=== PATIENT | male | born 1970 | race African-American/Black ===

== ENCOUNTER 2016-05-26 13:26 | Emergency (ER) | payer OTHER ==
[2016-05-26 14:32] LABS: Hematocrit 43 % (42-52); Hemoglobin 14.1 g/dl (14.0-18.0); Mean Corpuscular HGB Conc 33 g/dl (31-36); Mean Corpuscular Hemoglobin 27 pg (27-31); Mean Corpuscular Volume 83 fL (80-94); Mean Platelet Volume 8 um3 (7.4-10.4); Red Blood Count 5.18 10^6/ul (4.0-5.4); Red Cell Distribution Width 15 % (10.5-15); White Blood Count 6.3 10^3/ul (3.5-10.8)
[2016-05-26 14:34] LABS: Urine Bilirubin Negative (Negative); Urine Glucose Negative (Negative); Urine Nitrite Negative (Negative)
[2016-05-26 14:47] LABS: ALT 23 U/L (7-52); AST 18 U/L (13-39); Albumin 4.2 g/dL (3.2-5.2); Alkaline Phosphatase 52 U/L (34-104); Anion Gap 6 mmol/L (2-11); BUN/Creatinine Ratio 10.8 (8-20); Blood Urea Nitrogen 12 mg/dL (6-24); CO2 Carbon Dioxide 28 mmol/L (22-32); Calcium 9.3 mg/dL (8.6-10.3); Chloride 101 mmol/L (101-111); EGFR African American 91.7 (>60); EGFR Non-African American 71.3 (>60); Globulin 2.9 g/dL (2-4); Glucose 182 mg/dL (70-100); Potassium 3.8 mmol/L (3.5-5.0); Sodium 135 mmol/L (133-145); Total Protein 7.1 g/dL (6.4-8.9)
[2016-05-26 15:07] LABS: Benzodiazepine Urine Screen None Detected (None Detect)
[2016-05-26 15:38] LABS: Acetaminophen < 15 mcg/mL; Alcohol < 10 mg/dL (<10); Salicylate < 2.50 mg/dL (<30)
[2016-05-26 15:44] LABS: TSH (Thyroid Stimulating Horm) 1.21 mcIU/mL (0.34-5.60)
--- NOTE | 2016-05-26 19:56 | ED ---
Tyler Padilla Erika, scribed for Mir Messina MD on 05/26/16 at 1358 . Psychiatric Complaint - HPI Summary HPI Summary: Patient is a 46-year-old male presenting to the ED with a CC of depression. Patient reports a Hx of depression, for which he is non-compliant with his medication. He denies known bipolar disorder or other diagnoses. Patient states he has been feeling more depressed recently, and was sent here today by his mental health counselor. He denies SI/HI. Patient denies any drug or alcohol use today. - History Of Current Complaint Chief Complaint: EDMentalHealth Time Seen by Provider: 05/26/16 13:36 Accompanied By: Alone Hx Obtained From: Patient Onset/Duration: Gradual Onset, Lasting Days, Still Present Timing: Constant Severity Initially: Moderate Character: Depressed Alleviating Factor(s): Nothing Related History: Positive For: Prior Psychiatric Issues Has Suicidal: Denies: Thoughts Has Homicidal: Denies: Thoughts - Allergies/Home Medications Allergies/Adverse Reactions: Allergies Allergy/AdvReac Type Severity Reaction Status Date / Time No Known Allergies Allergy Verified 09/26/14 20:38 Home Medications: Home Medications BuPROPion XL* [Bupropion XL*] 300 mg PO QAM 05/26/16 [History Confirmed 05/26/16 ] Losartan TAB* [Cozaar TAB*] 50 mg PO DAILY 05/26/16 [History Confirmed 05/26/16] Sertraline* [Zoloft*] 150 mg PO DAILY 05/26/16 [History Confirmed 05/26/16] glipiZIDE TAB* [Glucotrol TAB*] 5 mg PO BID 05/26/16 [History Confirmed 05/26/16 ] metFORMIN* [Glucophage 1000 MG TAB *] 1,000 mg PO BID 05/26/16 [History Confirmed 05/26/16] PMH/Surg Hx/FS Hx/Imm Hx Endocrine/Hematology History: Reports: Hx Diabetes - II Neurological History: Reports: Other Neuro Impairments/Disorders - sleep apnea Psychiatric History: Reports: Hx Depression Infectious Disease History: No Infectious Disease History: Denies: Traveled Outside the [place] in Last 30 Days - Family History Known Family History: Positive: Diabetes - Mother - Social History Alcohol Use: Occasionally Substance Use Type: Reports: None Hx Tobacco Use: Yes Smoking Status (MU): Heavy Every Day Tobacco Smoker Review of Systems Negative: Fever Positive: Depressed All Other Systems Reviewed And Are Negative: Yes Physical Exam Triage Information Reviewed: Yes Vital Signs On Initial Exam: Initial Vitals Temp Pulse Resp BP Pulse Ox 98.4 F 82 12 145/100 100 05/26/16 13:28 05/26/16 13:28 05/26/16 13:28 05/26/16 13:28 05/26/16 13:28 Vital Signs Reviewed: Yes Appearance: Positive: Well-Appearing, No Pain Distress Skin: Positive: Warm, Skin Color Reflects Adequate Perfusion, Dry Head/Face: Positive: Normal Head/Face Inspection Eyes: Positive: EOMI, RODGER ENT: Positive: Normal ENT inspection Neck: Positive: Supple, Nontender Respiratory/Lung Sounds: Positive: Clear to Auscultation, Breath Sounds Present Cardiovascular: Positive: RRR Abdomen Description: Positive: Nontender, Soft Bowel Sounds: Positive: Present Musculoskeletal: Positive: Normal, Strength/ROM Intact Neurological: Positive: Normal, Sensory/Motor Intact, Alert, Oriented to Person Place, Time Psychiatric: Positive: Depressed Diagnostics - Vital Signs Vital Signs Temp Pulse Resp BP Pulse Ox 05/26/16 13:28 98.4 F 82 12 145/100 100 - Laboratory Lab Results: Lab Results 05/26/16 05/26/16 05/26/16 Range/Units 14:19 14:19 14:19 WBC 6.3 (3.5-10.8) 10^3/ul RBC 5.18 (4.0-5.4) 10^6/ul Hgb 14.1 (14.0-18.0) g/dl Hct 43 (42-52) % MCV 83 (80-94) fL MCH 27 (27-31) pg MCHC 33 (31-36) g/dl RDW 15 (10.5-15) % Plt Count 177 (150-450) 10^3/ul MPV 8 (7.4-10.4) um3 Neut % (Auto) 67.7 (38-83) % Lymph % (Auto) 25.0 (25-47) % [place] % (Auto) 6.0 (1-9) % Eos % (Auto) 0.4 (0-6) % Baso % (Auto) 0.9 (0-2) % Absolute Neuts (auto) 4.3 (1.5-7.7) 10^3/ul Absolute Lymphs (auto) 1.6 (1.0-4.8) 10^3/ul Absolute Monos (auto) 0.4 (0-0.8) 10^3/ul Absolute Eos (auto) 0 (0-0.6) 10^3/ul Absolute Basos (auto) 0.1 (0-0.2) 10^3/ul Absolute Nucleated RBC 0 10^3/ul Nucleated RBC % 0 Sodium 135 (133-145) mmol/L Potassium 3.8 (3.5-5.0) mmol/L Chloride 101 (101-111) mmol/L Carbon Dioxide 28 (22-32) mmol/L Anion Gap 6 (2-11) mmol/L BUN 12 (6-24) mg/dL Creatinine 1.11 (0.67-1.17) mg/dL Est GFR ( Amer) 91.7 (>60) Est GFR (Non-Af Amer) 71.3 (>60) BUN/Creatinine Ratio 10.8 (8-20) Glucose 182 H (70-100) mg/dL Calcium 9.3 (8.6-10.3) mg/dL Total Bilirubin 0.70 (0.2-1.0) mg/dL AST 18 (13-39) U/L ALT 23 (7-52) U/L Alkaline Phosphatase 52 (34-104) U/L Total Protein 7.1 (6.4-8.9) g/dL Albumin 4.2 (3.2-5.2) g/dL Globulin 2.9 (2-4) g/dL Albumin/Globulin Ratio 1.4 (1-3) TSH 1.21 (0.34-5.60) mcIU/mL Urine Color Yellow Urine Appearance Clear Urine pH 6.0 (5-9) Ur Specific [place] 1.014 (1.010-1.030) Urine Protein Negative (Negative) Urine Ketones Negative (Negative) Urine Blood Negative (Negative) Urine Nitrate Negative (Negative) Urine Bilirubin Negative (Negative) Urine Urobilinogen Negative (Negative) Ur Leukocyte Esterase Negative (Negative) Urine Glucose Negative (Negative) Urine Ascorbic Acid * H (Negative) Salicylates < 2.50 (<30) mg/dL Urine Opiates Screen (None Detect) Acetaminophen < 15 mcg/mL Ur Barbiturates Screen (None Detect) Ur Phencyclidine Scrn (None Detect) Ur Amphetamines Screen (None Detect) U Benzodiazepines Scrn (None Detect) Urine Cocaine Screen (None Detect) U Cannabinoids Screen (None Detect) Serum Alcohol < 10 (<10) mg/dL 05/26/16 Range/Units 14:19 WBC (3.5-10.8) 10^3/ul RBC (4.0-5.4) 10^6/ul Hgb (14.0-18.0) g/dl Hct (42-52) % MCV (80-94) fL MCH (27-31) pg MCHC (31-36) g/dl RDW (10.5-15) % Plt Count (150-450) 10^3/ul MPV (7.4-10.4) um3 Neut % (Auto) (38-83) % Lymph % (Auto) (25-47) % [place] % (Auto) (1-9) % Eos % (Auto) (0-6) % Baso % (Auto) (0-2) % Absolute Neuts (auto) (1.5-7.7) 10^3/ul Absolute Lymphs (auto) (1.0-4.8) 10^3/ul Absolute Monos (auto) (0-0.8) 10^3/ul Absolute Eos (auto) (0-0.6) 10^3/ul Absolute Basos (auto) (0-0.2) 10^3/ul Absolute Nucleated RBC 10^3/ul Nucleated RBC % Sodium (133-145) mmol/L Potassium (3.5-5.0) mmol/L Chloride (101-111) mmol/L Carbon Dioxide (22-32) mmol/L Anion Gap (2-11) mmol/L BUN (6-24) mg/dL Creatinine (0.67-1.17) mg/dL Est GFR ( Amer) (>60) Est GFR (Non-Af Amer) (>60) BUN/Creatinine Ratio (8-20) Glucose (70-100) mg/dL Calcium (8.6-10.3) mg/dL Total Bilirubin (0.2-1.0) mg/dL AST (13-39) U/L ALT (7-52) U/L Alkaline Phosphatase (34-104) U/L Total Protein (6.4-8.9) g/dL Albumin (3.2-5.2) g/dL Globulin (2-4) g/dL Albumin/Globulin Ratio (1-3) TSH (0.34-5.60) mcIU/mL Urine Color Urine Appearance Urine pH (5-9) Ur Specific [place] (1.010-1.030) Urine Protein (Negative) Urine Ketones (Negative) Urine Blood (Negative) Urine Nitrate (Negative) Urine Bilirubin (Negative) Urine Urobilinogen (Negative) Ur Leukocyte Esterase (Negative) Urine Glucose (Negative) Urine Ascorbic Acid (Negative) Salicylates (<30) mg/dL Urine Opiates Screen None detected (None Detect) Acetaminophen mcg/mL Ur Barbiturates Screen None detected (None Detect) Ur Phencyclidine Scrn None detected (None Detect) Ur Amphetamines Screen None detected (None Detect) U Benzodiazepines Scrn None detected (None Detect) Urine Cocaine Screen None detected (None Detect) U Cannabinoids Screen None detected (None Detect) Serum Alcohol (<10) mg/dL Result Diagrams: 05/26/16 14:19 05/26/16 14:19 Lab Statement: Any lab studies that have been ordered have been reviewed, and results considered in the medical decision making process. Course/Dx - Course Course Of Treatment: No critical care time. Patient is medically cleared at 15: 44. Assessment/Plan: MHE PENDING AT SHIFT CHANGE STABLE - Differential Dx/Clinical Impression Provider Diagnosis: Mental health problem Discharge - Discharge Plan Condition: Stable Disposition: PSYCHIATRIC FACILITY-[facility] [place] Referrals: Ton Patten MD [Primary Care Provider] - The documentation as recorded by the Tyler harley Erika accurately reflects the service I personally performed and the decisions made by me, Mir Messina MD.
[2016-05-27] MEDS ORDERED: Losartan TAB* 25 MG PO SCH (09:00)
[2016-05-27] MEDS ORDERED: BuPROPion XL* 300 MG TAB.XL PO SCH (09:00)
[2016-05-27] MEDS ORDERED: glipiZIDE TAB* 5 MG PO SCH (09:00)
[2016-05-27] MEDS ORDERED: Sertraline* 100 MG TAB PO SCH (09:00)
[2016-05-27] MEDS ORDERED: metFORMIN* 1,000 MG TAB PO SCH (09:00)
[2016-05-27 11:24] VITALS: BP 127/76
--- NOTE | 2016-05-27 17:14 | ED ---
Jimbo Padilla Salem, scribed for Raudel Colon MD on 05/27/16 at 1705 . Progress - Progress Note Progress Note: Sign out from Dr. Polk. Transfer paper work signed. Condition stable. - Consult/PCP Time Called: 20:35 Course/Dx - Course Course Of Treatment: No critical care time. Patient is medically cleared at 15: 44. - Diagnoses Provider Diagnoses: Depression, Suicidal ideations, Mood disorder Discharge - Discharge Plan Condition: Stable Disposition: [facility]ATR[facility] FACILITY[place] – [place] Referrals: Ton Patten MD [Primary Care Provider] - The documentation as recorded by the Jimbo harley Salem accurately reflects the service I personally performed and the decisions made by , Raudel Colon MD.
== END 2016-05-27 18:51 ==
LOC: ED 13:26
DX: F32.9 Major depressive disorder, single episode, unspecified (principal); F39 Unspecified mood [affective] disorder; R45.851 Suicidal ideations; F17.210 Nicotine dependence, cigarettes, uncomplicated
CPT/HCPCS: 36415; 80053; 80307; 80320; 80329; 81003; 84443; 85025; 93005; 99282; A9270-GY; G0480

== ENCOUNTER 2018-02-05 22:25 | Emergency (ER) | payer OTHER ==
--- NOTE | 2018-02-05 23:57 | ED ---
GI/ HPI - HPI Summary HPI Summary: This patient is a 47 year old M presenting to [facility] c/o blood in his stool intermittently for the last two weeks. The patient rates the pain 0/10 in severity. Patient reports constipation. He states he felt around his anus and it felt like something was growing from it he is concerned for hemorrhoids. - History of Current Complaint Chief Complaint: EDGIBleed Time Seen by Provider: 02/05/18 23:46 Stated Complaint: BLOOD IN STOOL Hx Obtained From: Patient Onset/Duration: Started Weeks Ago, Still Present Timing: Constant Severity: Mild Pain Intensity: 0 Associated Signs and Symptoms: Positive: Other: - blood in stool - Allergy/Home Medications Allergies/Adverse Reactions: Allergies Allergy/AdvReac Type Severity Reaction Status Date / Time No Known Allergies Allergy Verified 09/26/14 20:38 PMH/Surg Hx/FS Hx/Imm Hx Endocrine/Hematology History: Reports: Hx Diabetes - II Respiratory History: Denies: Hx Chronic Obstructive Pulmonary Disease (COPD) Neurological History: Reports: Other Neuro Impairments/Disorders - sleep apnea Psychiatric History: Reports: Hx Depression Denies: Hx Eating Disorder, Hx of Violent Episodes Against Others Infectious Disease History: No Infectious Disease History: Denies: Traveled Outside the [place] in Last 30 Days - Family History Known Family History: Positive: Diabetes - Mother - Social History Alcohol Use: Occasionally Substance Use Type: Reports: None Hx Tobacco Use: Yes Smoking Status (MU): Heavy Every Day Tobacco Smoker Review of Systems Negative: Fever Gastrointestinal: Other - constipation and felt like something was growing from it Positive: Other - blood in stool All Other Systems Reviewed And Are Negative: Yes Physical Exam - Summary Physical Exam Summary: VITAL SIGNS: Reviewed. GENERAL: Patient is a well-developed and nourished male who is lying comfortable in the stretcher. Patient is not in any acute respiratory distress. HEAD AND FACE: No signs of trauma. No ecchymosis, hematomas or skull depressions. No sinus tenderness. EYES: PERRLA, EOMI x 2, No injected conjunctiva, no nystagmus. EARS: Hearing grossly intact. Ear canals and tympanic membranes are within normal limits. MOUTH: Oropharynx within normal limits. NECK: Supple, trachea is midline, no adenopathy, no JVD, no carotid bruit, no c- spine tenderness, neck with full ROM. CHEST: Symmetric, no tenderness at palpation LUNGS: Clear to auscultation bilaterally. No wheezing or crackles. CVS: Regular rate and rhythm, S1 and S2 present, no murmurs or gallops appreciated. ABDOMEN: Soft, non-tender. No signs of distention. No rebound no guarding, and no masses palpated. Bowel sounds are normal. EXTREMITIES: FROM in all major joints, no edema, no cyanosis or clubbing. NEURO: Alert and oriented x 3. No acute neurological deficits. Speech is normal and follows commands. SKIN: Dry and warm Rectal: no bleeding, external hemorrhoids present Triage Information Reviewed: Yes Vital Signs On Initial Exam: Initial Vitals Temp Pulse Resp BP Pulse Ox 98.8 F 83 20 134/99 98 02/05/18 22:30 02/05/18 22:30 02/05/18 22:30 02/05/18 22:30 02/05/18 22:30 Vital Signs Reviewed: Yes Diagnostics - Vital Signs Vital Signs Temp Pulse Resp BP Pulse Ox 02/05/18 22:30 98.8 F 83 20 134/99 98 - Laboratory Lab Statement: Any lab studies that have been ordered have been reviewed, and results considered in the medical decision making process. GIGU Course/Dx - Course Assessment/Plan: This patient is a 47 year old M presenting to [facility] c/o blood in his stool intermittently for the last two weeks. The patient rates the pain 0 /10 in severity. Patient reports constipation. He states he felt around his anus and it felt like something was growing from it he is concerned for hemorrhoids. External hemorrhoids present on exam. Patient will be discharged and follow up from surgery. The patient is agreeable with this plan. - Diagnoses Provider Diagnoses: External hemorrhoids Discharge - Sign-Out/Discharge Documenting (check all that apply): Patient Departure - Discharge Plan Condition: Stable Disposition: HOME Patient Education Materials: Hemorrhoids (ED), Rectal Bleeding (ED) Referrals: Hebert Gay MD [Medical Doctor] - 2 Days Additional Instructions: Use a stool softener. RETURN TO THE EMERGENCY DEPARTMENT FOR CHANGING OR WORSENING SYMPTOMS - Attestation Statements Document Initiated by Scribe: Yes Documenting Scribe: Matt Null Provider For Whom Scribe is Documenting (Include Credential): Howie Garcia MD Scribe Attestation: Matt Padilla scribed for Howie Garcia MD on 02/06/18 at 0010. Status of Scribe Document: Ready
[2018-02-06] MEDS ORDERED: Hydrocortisone SUPP* 25 MG SUPP (2.5%) PR ONE (00:04)
[2018-02-06 00:31] VITALS: BP 138/92
== END 2018-02-06 00:34 | disposition home or self-care (01) ==
LOC: ED 22:25
DX: K64.4 Residual hemorrhoidal skin tags (principal); F17.210 Nicotine dependence, cigarettes, uncomplicated
CPT/HCPCS: 99282; A9270-GY

== ENCOUNTER 2018-03-09 01:15 | Emergency (ER) | payer OTHER ==
[2018-03-09] MEDS ORDERED: Penicillin VK TAB* 250 MG PO ONE (01:43)
[2018-03-09] MEDS ORDERED: Naproxen TAB* 375 MG PO ONE (01:43)
--- NOTE | 2018-03-09 01:44 | ED ---
Throat Pain/Nasal Congestion - HPI Summary HPI Summary: A 47 y/o M presents to ED with c/o bottom L dental pain onset three days ago. The pain is radiating to his L upper teeth at bedside. He was out of town at onset of symptoms, and has not scheduled a dentist appointment. He last went to a dentist one to two years ago. He has a double crown on his upper left teeth and multiple fillings on his bottom left teeth. He is chewing on the R side of his mouth due to the pain. The pain is so severe it wakes him from sleep. He's taken Ibuprofen which helped but now the pain has returned. - History of Current Complaint Chief Complaint: EDDentalPain Time Seen by Provider: 03/09/18 01:36 Hx Obtained From: Patient Onset/Duration: Lasting Days, Still Present Severity: Severe Related History: Smoking - Allergies/Home Medications Allergies/Adverse Reactions: Allergies Allergy/AdvReac Type Severity Reaction Status Date / Time No Known Allergies Allergy Verified 03/09/18 01:25 PMH/Surg Hx/FS Hx/Imm Hx Previously Healthy: No Endocrine/Hematology History: Reports: Hx Diabetes - II Respiratory History: Denies: Hx Chronic Obstructive Pulmonary Disease (COPD) Neurological History: Reports: Other Neuro Impairments/Disorders - sleep apnea Psychiatric History: Reports: Hx Depression Denies: Hx Eating Disorder, Hx of Violent Episodes Against Others Infectious Disease History: No Infectious Disease History: Denies: Traveled Outside the [place] in Last 30 Days - Family History Known Family History: Positive: Diabetes - Mother - Social History Occupation: Employed Full-time Lives: Alone Alcohol Use: Occasionally Hx Substance Use: No Substance Use Type: Reports: None Hx Tobacco Use: Yes Smoking Status (MU): Heavy Every Day Tobacco Smoker Review of Systems Positive: Fever Positive: Dental Pain All Other Systems Reviewed And Are Negative: Yes Physical Exam - Summary Physical Exam Summary: Appearance: Well-appearing, Well-nourished, lying in bed comfortable Skin: Warm, dry, no obvious rash Eyes: sclera anicteric, no conjunctival pallor ENT: mucous membranes moist Dental: No facial swelling, no pointing at gum line upper or lower. Neck: deferred Respiratory: No signs of respiratory distress Cardiovascular: Appears well perfused, pulses are nml Abdomen: deferred Musculoskeletal: Moving all 4 extremities without obvious discomfort Neurological: Awake and alert, mentation is normal, speech is fluent and appropriate Psychiatric: affect is normal, does not appear anxious or depressed Triage Information Reviewed: Yes Vital Signs On Initial Exam: Initial Vitals Temp Pulse Resp BP Pulse Ox 100.7 F 98 16 154/94 100 03/09/18 01:23 03/09/18 01:23 03/09/18 01:23 03/09/18 01:23 03/09/18 01:23 Vital Signs Reviewed: Yes Diagnostics - Vital Signs Vital Signs Temp Pulse Resp BP Pulse Ox 03/09/18 01:23 100.7 F 98 16 154/94 100 - Laboratory Lab Statement: Any lab studies that have been ordered have been reviewed, and results considered in the medical decision making process. EENT Course/Dx - Course Course Of Treatment: A 47 y/o M presents to ED with c/o bottom L dental pain onset three days ago. The pain is radiating to his L upper teeth at bedside. He has a double crown on his upper left teeth and multiple fillings on his bottom left teeth. - Diagnoses Provider Diagnoses: Toothache Discharge - Sign-Out/Discharge Documenting (check all that apply): Patient Departure - D/C - Discharge Plan Condition: Stable Disposition: HOME Prescriptions: Penicillin VK TAB* [Penicillin VK 250 mg Tab*] 500 mg PO QID #40 tab Patient Education Materials: Toothache (ED) Referrals: Ton Patten MD [Primary Care Provider] - Additional Instructions: Contact your dentist tomorrow to arrange followup. Often they will wait for a week or so for the antibiotic to have time to work. Switching to naprosyn ( alleve) might be better for pain as it lasts for 12 hours. - Billing Disposition and Condition Condition: STABLE Disposition: Home - Attestation Statements Document Initiated by Scribe: Yes Documenting Scribe: Sravanthi San Provider For Whom Shannon is Documenting (Include Credential): Dr. Ray Harley MD Scribe Attestation: Sravanthi Padilla scribed for Dr. Ray Harley MD on 03/09/18 at 0319. Scribe Documentation Reviewed: Yes Provider Attestation: The documentation as recorded by the Sravanthi harley accurately reflects the service I personally performed and the decisions made by me, Dr. Ray Harley MD Status of Scribe Document: Viewed
[2018-03-09 02:27] VITALS: BP 143/93
== END 2018-03-09 02:27 | disposition home or self-care (01) ==
LOC: ED 01:15
DX: K08.89 Other specified disorders of teeth and supporting structures (principal); R50.9 Fever, unspecified; F17.210 Nicotine dependence, cigarettes, uncomplicated
CPT/HCPCS: 99282; A9270-GY

== ENCOUNTER 2018-04-14 12:49 | Observation (INO) | payer OTHER ==
--- NOTE | 2018-04-14 13:11 | ED ---
Neurological HPI - HPI Summary HPI Summary: Patient is a 48 y/o M presenting to ED with complaints of tingling/numbness around the mouth. Numbness/tingling elsewhere is denied. He reports one episode of Sx yesterday and two episodes today. Patient states that episodes lasted a few minutes. No dizziness, no difficulty with ambulation is reported. PMHx of diabetes, HTN. PSHx of "swollen gland" removal. Patient is current smoker, no drug usage, endorses alcohol usage. FMHx of strokes, HTN, diabetes. On triage, pain is denied. Nothing is noted to aggravate/alleviate Sx. Home medications and allergies are reviewed. - History of Current Complaint Chief Complaint: EDNeurologicalDeficit Stated Complaint: NUMBNESS IN RIGHT SIDE OF FACE Time Seen by Provider: 04/14/18 13:03 Hx Obtained From: Patient Onset/Duration: Started days ago - yesterday Timing: Intermittent Episodes Lasting: - 1 minute Current Severity: None - pain deniend Neurological Deficit Location: Facial - mouth Pain Intensity: 0 Pain Scale Used: 0-10 Numeric - 0/10 Character: Numbness/Tingling - mouth, Other: - no dizziness, no difficulty ambulating Frequency: Episodes x___ - 3 Aggravating: Nothing Alleviating: Nothing Associated Signs and Symptoms: Positive: Numbness - tingling of mouth. Negative : Unsteady Gait, Dizziness - Allergy/Home Medications Allergies/Adverse Reactions: Allergies Allergy/AdvReac Type Severity Reaction Status Date / Time No Known Allergies Allergy Verified 04/14/18 13:29 Home Medications: Home Medications Aspirin [Aspirin EC] 81 mg PO DAILY 04/14/18 [History Confirmed 04/14/18] Lisinopril 20 mg PO DAILY 04/14/18 [History Confirmed 04/14/18] PMH/Surg Hx/FS Hx/Imm Hx Endocrine/Hematology History: Reports: Hx Diabetes - II Cardiovascular History: Reports: Hx Hypertension Respiratory History: Denies: Hx Chronic Obstructive Pulmonary Disease (COPD) Neurological History: Reports: Other Neuro Impairments/Disorders - sleep apnea Psychiatric History: Reports: Hx Depression Denies: Hx Eating Disorder, Hx of Violent Episodes Against Others - Surgical History Surgery Procedure, Year, and Place: "swollen gland" removal as a child Infectious Disease History: No Infectious Disease History: Denies: Traveled Outside the [place] in Last 30 Days - Family History Known Family History: Positive: Hypertension, Diabetes - Mother, Other - strokes - Social History Alcohol Use: Occasionally Hx Substance Use: No Substance Use Type: Reports: None Hx Tobacco Use: Yes Smoking Status (MU): Heavy Every Day Tobacco Smoker Review of Systems Negative: Fever - on vitals, temp is 98.7 F Neurological: Other - NEGATIE - DIFFICULTY AMBULATING, DIZZINESS Positive: Numbness - tingling around All Other Systems Reviewed And Are Negative: Yes Physical Exam - Summary Physical Exam Summary: VITAL SIGNS: Reviewed. GENERAL: Patient is a well-developed and nourished male who is lying comfortable in the stretcher. Patient is not in any acute respiratory distress. HEAD AND FACE: No signs of trauma. No ecchymosis, hematomas or skull depressions. No sinus tenderness. EYES: PERRLA, EOMI x 2, No injected conjunctiva, no nystagmus. No photophobia. EARS: Hearing grossly intact. Ear canals and tympanic membranes are within normal limits. MOUTH: Oropharynx within normal limits. NECK: Supple, trachea is midline, no adenopathy, no JVD, no carotid bruit, no c- spine tenderness, neck with full ROM. No meningeal signs, no Kernig's or brudzinskis signs. CHEST: Symmetric, no tenderness at palpation LUNGS: Clear to auscultation bilaterally. No wheezing or crackles. CVS: Regular rate and rhythm, S1 and S2 present, no murmurs or gallops appreciated. ABDOMEN: Soft, non-tender. No signs of distention. No rebound no guarding, and no masses palpated. Bowel sounds are normal. EXTREMITIES: FROM in all major joints, no edema, no cyanosis or clubbing. NEURO: Alert and oriented x 3. No acute neurological deficits. Speech is normal and follows commands. NIH 0 SKIN: Dry and warm GCS: 15 Triage Information Reviewed: Yes Vital Signs On Initial Exam: Initial Vitals Temp Pulse Resp BP Pulse Ox 98.7 F 97 18 159/98 99 04/14/18 12:53 04/14/18 12:53 04/14/18 12:53 04/14/18 12:53 04/14/18 12:53 Vital Signs Reviewed: Yes Diagnostics - Vital Signs Vital Signs Temp Pulse Resp BP Pulse Ox 04/14/18 12:53 98.7 F 97 18 159/98 99 - Laboratory Result Diagrams: 04/14/18 13:02 04/14/18 13:02 Lab Statement: Any lab studies that have been ordered have been reviewed, and results considered in the medical decision making process. - CT brain ct CT Interpretation Completed By: Radiologist Summary of CT Findings: IMPRESSION: NO EVIDENCE FOR GROSS ACUTE INFARCT, MASS EFFECT OR HEMORRHAGE. THIS REPORT WAS REVIEWED BY ED PHYSICIAN. - EKG 1400 Cardiac Rate: NL - rate of 86 BPM EKG Rhythm: Sinus Rhythm EKG Comparison: No Significant Change - compared to EKG from 05/27/16 Summary of EKG Findings: no significant change compared to EKG from 05/27/16 NIH Scale - NIH Scale Level of Consciousness: Alert/Keenly Responsive Ask Patient the Month and His/Her Age: Both Correct Ask Pt to Open/Close Eyes and Personal Injury Paralegal/Release Non-Paretic Hand: Both Correctly Best Gaze (Only Horizontal Eye Movement): Normal Visual Field Testing: No Visual Loss Facial Paresis-Pt to Smile & Close Eyes or Grimace Symmetry: Normal/Symmetrical Motor Function - Right Arm: No Drift-Holds 10 Seconds Motor Function - Left Arm: No Drift-Holds 10 Seconds Motor Function - Right Leg: No Drift-Holds 10 Seconds Motor Function - Left Leg: No Drift-Holds 10 Seconds Limb Ataxia-Must be out of Proportion to Weakness Present: Absent Sensory (Use Pinprick to Test Arms/Legs/Trunk/Face): Normal Best Language (Describe Picture, Name Items): No Aphasia Dysarthria (Read Several Words): Normal Extinction and Inattention: No Abnormality Total Score: 0 Course/Dx - Course Assessment/Plan: Patient is a 48 y/o M presenting to ED with complaints of tingling/numbness around the mouth. Numbness/tingling elsewhere is denied. He reports one episode of Sx yesterday and two episodes today. Patient states that episodes lasted a few minutes. No dizziness, no difficulty with ambulation is reported. PMHx of diabetes, HTN. PSHx of "swollen gland" removal. Patient is current smoker, no drug usage, endorses alcohol usage. FMHx of strokes, HTN, diabetes. On triage, pain is denied. Nothing is noted to aggravate/alleviate Sx. Home medications and allergies are reviewed. Blood work without any significant abnormality, except for platelets of 148, creatinine is 1.22, glucose of 298, lactic acid is 2.3. Likely the lactic acid is elevated secondary to the hyperglycemia. Head CT impression: no evidence for gross acute infarct. No mass effect or hemorrhage. In the ED course the patient was given IV fluids and insulin for the hyperglycemia. I discussed my physical exam and findings with Dr. Soto from neurology who will consult for the patient and recommends admission for TIA workup. At this point the patient is hemodynamically stable alert and oriented 3. I discussed the case with Dr. Linda from the hospitalist services who accepted the patient for admission. - Differential Dx Differential Diagnoses Neuro: Positive: Cerebrovascular Accident, Intracranial Bleed, Transient Ischemic Attack - Diagnoses Provider Diagnoses: TIA (transient ischemic attack) - Physician Notifications Discussed Care Of Patient With: Timo Soto Time Discussed With Above Provider: 15:16 Instructed by Provider To: Other - Patient's case was discussed with Dr. Soto at 1516. Dr. Soot recommends admission to hospitalist for TIA. 1543 - patient' s case was discussed with Dr. Linda, Dr. Linda accepts for admission. - Critical Care Time Critical Care Time: 30-74 min Discharge - Sign-Out/Discharge Documenting (check all that apply): Patient Departure - admit Patient Received Moderate/Deep Sedation with Procedure: No - NO PROCEDURES - Discharge Plan Condition: Improved Disposition: ADMITTED TO [facility] - Billing Disposition and Condition Condition: STABLE Disposition: Admitted to [facility] - Attestation Statements Document Initiated by Shannon: Yes Documenting Scribe: ERIKA KRISHNAMURTHY Provider For Whom Rachelle is Documenting (Include Credential): MARZENA BOBO MD Scribe Attestation: I, ERIKA KRISHNAMURTHY , scribed for MARZENA BOBO MD on 04/15/18 at 1112. Scribe Documentation Reviewed: Yes Provider Attestation: The documentation as recorded by the ERIKA harley accurately reflects the service I personally performed and the decisions made by me, MARZENA BOBO MD Status of Scribe Document: Viewed
--- OUTSIDE RECORDS SUMMARY | 2018-04-14 13:26 | XMS REPORT | Continuity of Care Document ---
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 Marshal Hollis MD Primary Care Physician Unavailable Payers Type Date Identification Numbers Payment Provider Subscriber Effective: 2016 Policy Number: [id number] [employer] Number: [id number] [address] [id number] PayID: [id number] [place] [address] Advance Directives Description No Information Available Problems Description No Information Family History Date Family Member(s) Problem(s) Comments Father No Current Problems Mother Diabetes Mellitus, II First Son No Current Problems First Daughter No Current Problems First Brother Diabetes Mellitus, II First Sister No Current Problems Second Sister No Current Problems Social History Type Date Description Comments Sex Unknown Marital Status Single Occupation Unemployed Work Status Unemployed Tobacco Use Start: Unknown Heavy tobacco smoker (more than 10 cigarettes/day) Smoking Status Reviewed: 03/16/18 Heavy tobacco smoker (more than 10 cigarettes/day) Allergies, Adverse Reactions, Alerts Description No Known Drug Allergies Medications Medication Date Status Form Strength Qnty SIG Indications Ordering Provider Metformin HCL 03/16/ Active Tablets 1000mg 60tabs take one E11.9 . 2018 tablet by Heladio mouth twice MD disha a day Lisinopril 03/16/ Active Tablets 20mg 30tabs 1 by mouth I10 Marshal T. 2018 every day Heladio gauthier MD Atorvastatin 03/16/ Active Tablets 20mg 30tabs 1 by mouth E78.00 Marshal T. Calcium 2018 every day Heladio gauthier MD Aspir-81 03/16/ Active Tablets 81mg 30tabs 1 by mouth I10 . 2019 DR every day Heladio gauthier MD Amoxicillin/Cl 00/00/ Active Tablets 500-125mg 1 by mouth Unknown avulanate 0000 twice a day Potassium ending 03/23/18 prescribed Dentist Ibuprofen 00/00/ Active Tablets 600mg 1 tab by Unknown 0000 mouth every 8 hours as needed pain. take with food Immunizations Description No Information Available Vital Signs Date Vital Result Comment 03/16/2018 10:32am BP Systolic 142 mmHg BP Diastolic 102 mmHg Heart Rate 80 /min Body Temperature 97.4 F Respiratory Rate 17 /min Height 69 inches 5'9" Weight 196.00 lb BMI (Body Mass Index) 28.9 kg/m2 Right Visual Acuity Distance 20/30 Left Visual Acuity Distance 20/25 Results Test Date Facility Test Result H/L Range Note Laboratory test 03/16/2018 [facility] Hemoglobin A1c 7.9 % 4.1-5.7 finding (607)- - (Fma) Procedures Description No Information Available Encounters Description No Information Available Plan of Treatment 03/16/2018 - Marshal Hollis MDE11.9 Type 2 diabetes mellitus without complicationsNew Medication:Metformin HCL 1000 mg - take one tablet by mouth twice a dayFollow up:3 moI10 Essential (primary) hypertensionNew Medication: Lisinopril 20 mg - 1 by mouth every dayAspir-81 81 mg - 1 by mouth every dayE78.00 Pure hypercholesterolemia, unspecifiedNew Medication:Atorvastatin Calcium 20 mg - 1 by mouth every dayF17.210 Nicotine dependence, cigarettes, objzqnednajhkT96.33 Obstructive sleep apnea (adult) (pediatric)AllComments:~B_~U _Medication Management~b_~u_ Patient Understands medications he's taking? Yes No Are there Barriers to Adherence? Yes No Has the patient been asked about herbal supplements and therapies, and OTC meds? Yes No
[2018-04-14 14:12] LABS: ABS Basophils 0 10^3/ul (0-0.2); ABS Eosinophils 0.1 10^3/ul (0-0.6); ABS Lymphocytes 2.1 10^3/ul (1.0-4.8); ABS Monocytes 0.3 10^3/ul (0-0.8); ABS Neutrophils 3.7 10^3/ul (1.5-7.7); ABS Nucleated RBC 0 10^3/ul; Hematocrit 45 % (42-52); Hemoglobin 14.9 g/dl (14.0-18.0); Lymphocyte % 33.8 %; Mean Corpuscular HGB Conc 33 g/dl (31-36); Mean Corpuscular Hemoglobin 27 pg (27-31); Mean Corpuscular Volume 81 fL (80-94); Mean Platelet Volume 8.2 fL (7.4-10.4); Nucleated Red Blood Cells % 0.1; Platelet Count 148 10^3/ul (150-450); Red Blood Count 5.63 10^6/ul (4.00-5.40); Red Cell Distribution Width 17 % (10.5-15); White Blood Count 6.2 10^3/ul (3.5-10.8)
[2018-04-14 14:20] LABS: Activated Partial Thrombo Time 32.8 seconds (26.0-36.3); INR 0.96 (0.77-1.02)
[2018-04-14 14:25] LABS: Albumin 4.2 g/dL (3.2-5.2); Albumin/Globulin Ratio 1.6 (1-3); BUN/Creatinine Ratio 9.8 (8-20); Calcium 9.1 mg/dL (8.6-10.3); EGFR African American 76.7 (>60); EGFR Non-African American 63.4 (>60); Globulin 2.6 g/dL (2-4); HDL Cholesterol 32.8 mg/dL; Total Bilirubin 0.5 mg/dL (0.2-1.0); Total Protein 6.8 g/dL (6.4-8.9)
[2018-04-14 14:57] LABS: Potassium 4.4 mmol/L (3.5-5.0)
[2018-04-14] MEDS ORDERED: Insulin REGULAR(*) 1 UNITS UNIT IV PUSH ONE (15:07)
[2018-04-14] MEDS: NS 0.9% 1000 ML** 2,000 ML IV ONE (15:37)
[2018-04-14 15:54] LABS: Urine Appearance Clear; Urine Bilirubin Negative (Negative); Urine Blood Negative (Negative); Urine Color Yellow; Urine Glucose 3+(>=500 mg/dL) (Negative); Urine Ketones Negative (Negative); Urine Nitrite Negative (Negative); Urine Protein Negative (Negative); Urine Specific Gravity 1.014 (1.010-1.030); Urine Urobilinogen Negative (Negative)
[2018-04-14] MEDS ORDERED: Magnesium Hydroxide LIQ* 30 ML UDC PO PRN (16:10)
[2018-04-14] MEDS ORDERED: Acetaminophen TAB* 325 MG PO PRN (16:10)
[2018-04-14] MEDS ORDERED: Aspirin EC TAB* 325 MG PO ONE (16:17)
[2018-04-14] MEDS ORDERED: amLODIPine TAB* 5 MG PO ONE (16:18)
[2018-04-14] MEDS ORDERED: Dextrose 50% Syringe 50 ML* 25 GM/50 ML SYRINGE IV PUSH PRN (16:19)
[2018-04-14] MEDS: Insulin LISPRO* 1 UNITS UNIT SUBCUT SCH ×2 (18:56→20:16)
--- NOTE | 2018-04-14 19:11 | HP ---
ADDENDUM: DIAGNOSIS: Lactic acidosis. His lactic acidosis does not appear to be infectious in nature. He does have an elevated blood sugar. Lactic acid was only 2.3 and he has received a liter and half of fluids. He is not tachycardiac or hypotensive. He does not present with fevers. Chest x-ray is clear. This is likely secondary to his elevated blood glucose. Unless the patient has a fever or hypotension, we will not continue to trend his lactic acid. ETIENNE WATERS, RESIDENTIAL CARPET INSTALLER [id number]/[facility] #: [id number] ELISHA
[2018-04-14] MEDS: glipiZIDE TAB* 5 MG PO SCH (19:16)
--- NOTE | 2018-04-14 19:19 | HP ---
AMENDED REPORT NOW INCLUDES COSIGNER DESIGNATION ADDENDUM NOW INCLUDED ON THIS REPORT CC: Dr. oSto; Dr. Patten * ADMISSION HISTORY AND PHYSICAL: DATE OF ADMISSION: 04/14/18 PRIMARY CARE PROVIDER: Dr. Ton Patten. ATTENDING PROVIDER: Nando Linda MD * (DICTATED BY ETIENNE WATERS NP ) CHIEF COMPLAINT: Numbness to the right upper lip and outer corner of the mouth. HISTORY OF PRESENT ILLNESS: This is a 48-year-old male patient who presents to the emergency department with a report of right upper lip and outer corner numbness, paresthesias, twitching and tingling. The patient states that it happened several times yesterday and again this morning. He became concerned because he does have family history of stroke. His mother has had multiple strokes as well as an aunt who had strokes last month. The patient does endorse being diabetic and having high cholesterol and also history of hypertension. For these reasons, the patient came to the emergency department for evaluation. Initial lab work in the ED is unremarkable; however , because of his risk factors, it was felt prudent that the patient should be brought in for observation to rule out TIA versus CVA. PAST MEDICAL HISTORY: The patient's medical history again is diabetes mellitus type 2, hypertension, hyperlipidemia, depression. PAST SURGICAL HISTORY: Tonsillectomy as a child. MEDICATIONS: At home include: 1. Lipitor 20 mg p.o. daily. 2. Lisinopril 20 mg p.o. daily. 3. Aspirin 81 mg daily. 4. Metformin 1000 mg p.o. b.i.d. 5. Glipizide 5 mg p.o. b.i.d. 6. Sertraline 150 mg p.o. daily. ALLERGIES: The patient has no known drug allergies. SOCIAL HISTORY: The patient is an active everyday smoker anywhere from half to one pack per day for "many years." Drinks alcohol only socially. No recent drug use. States when he was younger, he did engage in some recreational drug use but never had a problem with addiction. He does work full-time, although he does endorse that his hours were just cut and he is very stressed secondary to lack of financial resources. He is not . He has 2 grown children. His mother is his healthcare proxy. She lives in [place]. REVIEW OF SYSTEMS: The patient denies any fever or chills. He does have some fatigue. States he does at times feel dizzy. Approximately 10 minutes before our interview, the patient stated that numbness to his lip had presented itself again, lasted for a couple of minutes and then resolved. He denies chest pain. No shortness of breath. No abdominal pain. No nausea, no vomiting. No arthralgias or myalgias. No general weakness. No difficulty with ambulating and no further constitutional complaints. PHYSICAL EXAMINATION GENERAL: He is an alert, well-nourished, well-appearing male. VITAL SIGNS: Blood pressure 148/97, heart rate 88, respiratory rate 18, temperature is 98.7, O2 saturation is 96% on room air. HEENT: The patient is atraumatic, normocephalic. PERRLA with nonicteric sclerae. Oral mucosa is moist. Tongue is midline. NECK: Supple. Nontender. No JVD noted. No carotid bruit auscultated. LUNGS: Clear bilaterally to auscultation with no wheezing, rhonchi, or rales. CARDIOVASCULAR: S1, S2 present. No murmurs, gallops, or rubs noted. Rate and rhythm are regular. ABDOMEN: Soft, nontender, and nondistended. Positive bowel sounds in all 4 quadrants. : Deferred. MUSCULOSKELETAL: There is no clubbing, no cyanosis, no pedal edema. He has +2 distal pulses palpable. He has a steady gait. Gross motor and sensation are intact. NEUROLOGIC: Currently focally intact with no gross deficits. PSYCHIATRIC: He is cooperative and appropriate. DIAGNOSTIC STUDIES/LAB DATA: WBC is 6.2, RBC is 5.63, hemoglobin 14.9, hematocrit 45, MCV 81, MCH 27, RDW 17, and platelets 148. Sodium 135, potassium 4.4, chloride 102, CO2 27, anion gap 6, BUN 12, creatinine 1.22, GFR 76.7, glucose 297, lactic acid 2.3, calcium 9.1. Bilirubin 0.50, AST 19, ALT 22 , alk phos 63. Troponin is negative at 0.00. Total protein 6.8, albumin 4.2, globulin 2.6. Triglycerides 226, cholesterol total 195, LDL is 117, HDL is 32.8. INR is 0.96. EKG today shows regular sinus rhythm with a right bundle-branch block. CT of the head, no evidence for gross or acute infarct, mass effect, or hemorrhage. IMPRESSION: This is a 48-year-old gentleman with some comorbid conditions of hypertension, uncontrolled diabetes, and hyperlipidemia that presents with symptoms not unlike transient ischemic attack versus cerebrovascular accident. PLAN: The patient will be admitted to observation. DIAGNOSES: 1. Facial numbness and tingling, rule out transient ischemic attack versus cerebrovascular accident. We have consulted with Dr. Soto who will be seeing the patient. In the mean time, we will order an MRI without contrast; MRA of the head and neck also without contrast. He will be optimized with aspirin, 325 mg has been ordered. The patient does admit that he has not been compliant with this medications, so optimization with a statin may still be a good idea for him. Also, the patient's diabetes does appear to be uncontrolled. I would suspect that the patient is also not taking his diabetic meds. He also said he has had some dietary indiscretion secondary to living [place]. The patient states he does not have a kitchen. He does not have access to purchasing food that he can make for himself, so he has been forced to eat fast food and he has not been making healthy choices secondary to financial concerns. We will also be checking the patient's TSH. 2. History of hypertension. His blood pressure is quite elevated here. He does take lisinopril daily, again unsure of his medication adherence. We will give him 1 dose of amlodipine now. Continue to monitor his blood pressure. 3. Diabetes mellitus, uncontrolled hyperglycemia. Blood sugar was 297. He received 8 units of insulin IV in the emergency department. He will be placed on lispro sliding scale. We will hold his metformin for now because his renal function is mildly elevated. We will continue his glipizide. The patient would likely benefit from endocrine consult at some point; however, we will check his A1c and see where his numbers are and see if we can more effectively manage his diabetes. He will be on consistent carbohydrate diet. 4. History of depression. We will continue the patient on his current dose of sertraline. 5. Homelessness. I placed a consultation to social work to see if we can assist this patient with housing. 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 So, we will consult social work to see if we can find some housing assistance. 6. Elevated creatinine. The patient's creatinine is 1.22. Looks like he has had elevated creatinine in the past since 2014, so it appears he has some chronic kidney disease which may be secondary to his uncontrolled diabetes. Creatinine is at baseline right now. We will continue to monitor this and avoid nephrotoxic medications. The rest of the patient's course will be determined by further diagnostics, laboratories and any other input from other providers is warranted during this admission. TIME SPENT: Approximately 60 minutes interfacing with the patient, speaking with consultants, and the emergency department staff. This plan of care has been discussed with Dr. Nando Linda, who is in agreement with the plan of care. ETIENNE WATERS NP ADDENDUM: DIAGNOSIS: Lactic acidosis. His lactic acidosis does not appear to be infectious in nature. He does have an elevated blood sugar. Lactic acid was only 2.3 and he has received a liter and half of fluids. He is not tachycardiac or hypotensive. He does not present with fevers. Chest x-ray is clear. This is likely secondary to his elevated blood glucose. Unless the patient has a fever or hypotension, we will not continue to trend his lactic acid. ETIENNE WATERS NP [id number]/[facility] #: [id number]/[facility] #: [id number] ELISHA
--- NOTE | 2018-04-14 19:45 | CONS ---
NEUROLOGY CONSULTATION NOTE: DATE OF CONSULT: 04/14/18 CONSULTING PROVIDER: Dr. Bunch. REASON FOR CONSULT: Numbness and tingling in the right side of the mouth with mild right facial numb ness. CHIEF COMPLAINT: Perioral numbness. HISTORY OF PRESENT ILLNESS: Mr. Yemi Clifford is a 48-year-old right-handed man with history of hype rtension, dyslipidemia, diagnosis of diabetes mellitus type 2 and history of polysubstance abuse who presented to the ED for further evaluation of intermittent perioral numbness on the right side. The patient stated that this occurred yesterday. He was sitting down when he noticed sudden onset in tin gling and twitching like movements of the right side of the mouth with numbness around the perioral r egion. This lasted for approximately 1 minute. He did not have another episode until today. He den ied any double vision. He denied any headache, dizziness, or lightheadedness. The patient has not h ad any dental procedures done. He denied any weakness or numbness in any part of the limbs. Current NIH stroke scale 0. PAST MEDICAL HISTORY: Hypertension, dyslipidemia, polysubstance abuse, uses cocaine and last use was about 5 to 7 days ago, tobacco abuse, and diabetes mellitus type 2. The patient has a history of de pression. MEDICATIONS: 1. He is supposed to be on glipizide 5 mg p.o. b.i.d. 2. Metformin 100 mg p.o. b.i.d. 3. Sertraline 150 mg p.o. daily. 4. Atorvastatin 20 mg p.o. daily. 5. Lisinopril 20 mg p.o. daily. 6. Aspirin 81 mg p.o. daily. The patient stated that he does not take his medications regularly. He even denied taking aspirin. ALLERGIES: No known drug allergies. FAMILY HISTORY: The patient does not know his father. His mother suffers from stroke and cardiovasc ular disease. His aunt recently had a stroke 1 month ago. SOCIAL HISTORY: The patient is homeless. He has a car. 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 He lives in a homeless fpc. REVIEW OF SYSTEMS: A 14-point review of systems was obtained and otherwise negative except for what was mentioned in the HPI. PHYSICAL EXAMINATION: Vitals: Temperature of 98.7, pulse rate of 88, respiratory rate of 18, oxygen saturation of 96%, blood pressure 148/97. General: Well- nourished, well-developed man, in no acut e distress. Head: Normocephalic, atraumatic. Eyes: Conjunctivae/corneas are clear. Neck is suppl e and symmetrical with no carotid bruits. Lungs are clear to auscultation bilaterally. Cardiovascula r: Regular rate and rhythm with normal S1, S2. Extremities: Normal range of motion with no cyanosi s. Skin: No skin lesions or laceration. Psych: Affect is broad and normal mood. Mental status: A wake, alert, oriented to person, place, time, and general circumstances. Cranial Nerves: Normal to confrontation testing bilaterally. Pupils are mid range and reactive to light. Extraocular muscles are intact. No facial asymmetry. Sensation is intact to forehead, cheeks and jaw region bilaterally . He is able to hear throughout the history process. Symmetrical palatal elevation. Normal strength against shoulder shrug resistance. Tongue is symmetrical and midline without any atrophy or fascicul ation. Motor Examination: No abnormal movement or pronator drift. 5/5 strength in the upper and lo wer extremities bilaterally. Reflexes, right/left: Brachioradialis 2+ bilaterally, biceps 2+ bilate rally, triceps 2+/2+, patella 2+/2+, ankle 1+/1+, plantar flexor/flexor. Sensation is intact to ligh t touch throughout. Normal vibration and proprioception at the great toes. Coordination: Normal fin chanelle-to- nose and qlhl-qh-kwbm testing bilaterally. Gait and Station: Narrow based, normal stance an d gait, no ataxia. LABORATORY DATA/DIAGNOSTIC STUDIES: The patient had laboratory data that showed a WBC of 6.2, hemogl obin 14, hematocrit of 45, platelets of 148,000. Sodium of 135, potassium 4.4, chloride of 102, BUN of 12, creatinine 1.22, glucose of 297. Lactic acid of 2.3. LDL 117, cholesterol 195. Urinalysis w as negative for any pyuria. He had a CT of the head completed on 04/14/18 that I personally reviewed. There is no evidence of ac [place] intracranial abnormalities. There is no evidence of mass effect, intracranial hemorrhage, or russel ors. ASSESSMENT: Mr. Yemi Clifford is a 48-year-old man with history of hypertension, dyslipidemia, diabe elie mellitus type 2, and polysubstance abuse, last use was approximately 1 week ago who presented wit h 2 episodes of intermittent paresthesias involving the perioral region with mild right facial numbne ss. Current NIH stroke scale is 0. He is asymptomatic. There is concern that the patient may have transient ischemic attack to the brainstem or the left parietal postcentral gyrus homunculus. The pa jessica presented with an elevated glucose of 297 and lactic acid of 2.3. Seizures are unlikely in thi s case. Other differential diagnosis will include hyperglycemia-induced transient neurological jackson es characterized by paresthesias. RECOMMENDATIONS: Please obtain an MRI brain, MRA head and neck to evaluate for any intracranial sten oses or evaluate for a small asymptomatic ischemic infarction. The most important thing here is prima ry stroke prevention, which should include blood pressure management, serum glucose management, and t aking of antiplatelet agent regularly. Extensive education and counseling was provided to the patien t today. I informed the patient that he should stay away from using drugs. Please obtain a urine to x screen. Continue the patient on aspirin 81 mg daily. Increase the patient's atorvastatin to 80 mg p.o. daily. No need for VTE prophylaxis or long-term anticoagulation therapy given the patient has no atrial arrhythmias. If the above recommended testing is negative, the patient can be discharged h ome first thing in the morning. I would be more than happy to follow up with the patient to make zora e he is taking his medication as an outpatient. We will arrange a followup appointment in [address] [place] [address]. TIME SPENT: The treatment time spent, 70 minutes of which more than 50% was spent reviewing the [facility] hospital record, interviewing the patient, examining the patient, as well as discussing the treatment plan as mentioned above. I also discussed the treatment plan with Zoila, the primary provider. [id number]/[facility] #: [id number]
[2018-04-14] MEDS ORDERED: metFORMIN* 1,000 MG TAB PO SCH (21:00)
[2018-04-15] MEDS: Insulin LISPRO* 1 UNITS UNIT SUBCUT SCH ×2 (08:57→11:43)
[2018-04-15] MEDS: glipiZIDE TAB* 5 MG PO SCH (08:58)
[2018-04-15] MEDS ORDERED: Sertraline* 50 MG TAB PO SCH (09:00)
[2018-04-15] MEDS ORDERED: Atorvastatin* 80 MG TAB PO SCH (09:00)
[2018-04-15] MEDS ORDERED: Lisinopril TAB* 10 MG PO SCH (09:00)
[2018-04-15] MEDS ORDERED: Aspirin EC TAB* 81 MG TAB.EC PO SCH (09:00)
[2018-04-15] MEDS ORDERED: Atorvastatin* 20 MG TAB PO SCH (09:00)
[2018-04-15 12:49] LABS: Barbiturates Urine Screen None Detected (None Detect); Benzodiazepine Urine Screen None Detected (None Detect); Urine Cannabinoids Screen None Detected (None Detect)
[2018-04-15 12:52] VITALS: BP 127/81
--- NOTE | 2018-04-15 21:18 | DS ---
CC: Dr. Marshal Hollis; Dr. Timo Soto * DISCHARGE SUMMARY: DATE OF ADMISSION: 04/14/18 DATE OF DISCHARGE: 04/15/18 PRIMARY CARE PROVIDER: Dr. Marshal Hollis. NEUROLOGIST: Dr. Timo Soto. ATTENDING PHYSICIAN: Dr. Chip Berumen * (dictated by Tess Lozano NP). PRIMARY DIAGNOSES: Facial paresthesia, transient ischemic attack versus hyperglycemia. SECONDARY DIAGNOSES: 1. Hypertension. 2. Diabetes mellitus. 3. Depression. 4. Chronic kidney disease stage 2. STUDIES WHILE IN THE HOSPITAL: 1. Orbit x-ray on 04/14/18 reads as no radiopaque foreign body is noted. 2. Brain CT on 04/14/18 reads as no evidence for gross acute infarct, mass effect or hemorrhage. 3. EKG on 04/14/18 shows normal sinus rhythm with a rate of 86, QTc 467, right bundle branch block. 4. Brain MRI on 04/14/18 reads as no MRI events of acute infarct. Scattered nonspecific T2 FLAIR hyperintensities of the periventricular and deep subcortical white matter. Differential includes sequelae of chronic small vessel ischemic change, demyelinating disease such as multiple sclerosis or other chronic inflammatory white matter disease. Recommend further evaluation with post-contrast MR brain to evaluate for active demyelinating disease. 5. Head MRI on 04/14/18 reads as no acute findings. 6. Neck MRI on 04/14/18 reads as no hemodynamically significant stenosis. HISTORY OF PRESENT ILLNESS AND HOSPITAL COURSE: Mr. Clifford is a 48-year-old male with past medical history of diabetes, hypertension, hyperlipidemia and depression, who presented to the emergency room on 04/14/18 with complaints of right lip and mouth numbness. Please see the history and physical by Zoila Nascimento NP., for a complete summary of the events leading up to this hospitalization. In short, the patient reported right upper lip and outer corner numbness, paresthesias, twitching, and tingling. He reported that it happened several times the day prior and was concerned because of a family history of stroke and so he presented to the emergency room. In the emergency room, the patient had imaging as noted above. He also was noted to have an elevated lactic acid of 2.3, which was not resources representative of any acute infection , but was likely related to his hyperglycemia. He displayed no signs of infection. His labs were essentially otherwise unremarkable. He was admitted by the hospitalist service because of the concern for TIA versus CVA. The patient was seen in consultation by Dr. Soto from Neurology, who recommended imaging, as noted above. He recommended primary stroke prevention including blood pressure management, glucose control, and antiplatelet therapy with aspirin. He additionally increased the patient's atorvastatin, though did not feel as though the patient needed any anticoagulation as there was no evidence of atrial arrhythmias. He noted that as long as the testing was negative, the patient could be discharged the following morning and would need to follow up with him in 3 to 4 weeks. The patient was noted to have adequate blood pressure control with systolic pressures in the 90s to 120s. He did have a hemoglobin A1c, which was 8.3%. He had a negative urine toxicology screen. He had a lipid panel, which showed triglycerides of 226, total cholesterol of 195, LDL of 117, and HDL of 32. On exam this morning, the patient reports that his paresthesias have resolved completely and he had no further incidents overnight. He reports feeling well. He does note that he has been noncompliant with medications in the past and has recently established care with a new PCP, although he also notes that he may end up moving out of this area back to [place]. The patient has taken Januvia in the past, last year , which he tolerated well. He reports stopping this due to medication noncompliance only. I did speak at length with the patient and stressed the importance of glucose and blood pressure control in order to prevent further complications including TIA or CVA. He verbalizes understanding, although it remains uncertain if he will actually be compliant with medications and follow up as needed. The patient displays no focal neurological deficits and is agreeable to discharge. Mr. Clifford is stable for discharge today. Vital signs are as follows: Temp 97.0, heart rate 65, respiratory rate 16, oxygen saturation 100% on room air, blood pressure 127/81. DISCHARGE MEDICATIONS: New medications: Januvia 100 mg p.o. daily. Changed medications: Atorvastatin 80 mg p.o. daily (previously was 20 mg p.o. daily). Continued medications: 1. Aspirin 81 mg p.o. daily. 2. Glipizide 5 mg p.o. b.i.d. 3. Lisinopril 20 mg p.o. daily. 4. Metformin 1000 mg p.o. b.i.d. 5. Sertraline 150 mg p.o. daily. DISCHARGE PLAN: Mr. Clifford will be discharged home; he is homeless, though currently is living at a longterm and case management has verified that this is a safe plan for discharge. Activity will be as tolerated. Diet will be consistent carb, diabetic. Medications are noted above. The patient has been restarted on Januvia as his A1c is mildly elevated and he has tolerated this medication well in the past. As noted above, his atorvastatin dosing has been increased. He can continue his other usual medications. He will need to follow up with his PCP in 4 to 7 days and will need to follow up with Dr. Soto in [address] Soto has indicated that his office will call the patient to schedule an appointment. The patient has been instructed to return to the emergency room or nearest hospital for any worsening of symptoms, shortness of breath, lightheadedness, dizziness, chest discomfort, high fevers, chills, night sweats, loss of consciousness or any other worrisome signs or symptoms. This is a summarized report of a complex medical history and hospital stay. For further details, please see the entire medical record. TIME SPENT: Approximately 40 minutes were spent on this discharge. TESS LOZANO, ROSENDA [id number]/[facility] #: [id number] ELISHA
== END 2018-04-15 14:47 | disposition home or self-care (01) ==
LOC: ED 12:49 → MEDTELE 16:10
PROVIDERS: ADMIT Internal Medicine; ATTEND Internal Medicine
DX: G45.9 Transient cerebral ischemic attack, unspecified (principal); R20.0 Anesthesia of skin; F17.210 Nicotine dependence, cigarettes, uncomplicated; I10 Essential (primary) hypertension; E11.65 Type 2 diabetes mellitus with hyperglycemia; E78.5 Hyperlipidemia, unspecified; Z79.82 Long term (current) use of aspirin
CPT/HCPCS: 36415; 70030; 70450; 70544; 70547; 70551; 80053; 80061; 80307; 81003; 83036; 83605; 84252; 84443; 84484; 85025; 85610; 85730; 86850; 86900; 86901; 93005; 96374; 99284; A9270-GY; G0378